=== PATIENT | male | born 1955 | race Caucasian/White ===

== ENCOUNTER → 2017-05-17 | Outpatient (CLI) | payer BC ==
[~2017-05-17] MED LIST: ASPIRIN ADULT L81 M2 PO; BACTRIM DS 8001 TAB PO; DEPO-TESTOS200 MG/M2 IM; HYDROCODONE1 TABLET PO; HYDROMORPHONE 2M2 MG PO; LORTAB 500 MG-71 TAB PO; MOBIC15 MG PO; NAPROSYN 500MG500 MG PO; PHENAZOPYRIDIN200 MG PO; PHENERGAN 25MG.25 M1 PO; TORADOL10 M1 PO; TYLENOL PM EXTR1 TAB PO; TYLENOL PM1 CAP PO; VALIUM 10MG TAB10 MG PO
--- NOTE | 2017-05-17 15:28 | RADIOLOGY REPORT PS360 ---
US [id number] HISTORY: LT FLANK PAIN, HEMATURIA, UROLITHIASIS ORDERING PHYSICIAN: Antione Batres MD PATIENT AGE: 61 years COMPARISON: None FINDINGS: RIGHT KIDNEY:Unremarkable. Normal size and echogenicity. No hydronephrosis Right kidney is 11 x 5 x 5 cm LEFT KIDNEY:Unremarkable. No hydronephrosis. Normal size and echogenicity. Left kidney is 12 x 6 x 6 cm. A 1 cm parapelvic renal cyst is noted on the left OTHER FINDINGS: No stones demonstrated IMPRESSION: 1. No hydronephrosis. No stones demonstrated. 2. Small left renal cyst. Left kidney is larger than the right which is nonspecific.
== END ==
LOC: RAD 10:17
DX: R10.9 Unspecified abdominal pain (principal); R31.9 Hematuria, unspecified; N20.9 Urinary calculus, unspecified

== ENCOUNTER → 2017-09-23 | Outpatient (CLI) | payer BC ==
[~2017-09-23] MED LIST changes: +APAP/HYDROCODON1 TA9 PO
--- NOTE | 2017-09-24 09:15 | RADIOLOGY REPORT PS360 ---
EXAM: CT LUNG LOW DOSE WO CONTRAST COMPARISON: 01/04/2013 HISTORY: 62 year old male with greater than 30 factors smoking history asymptomatic ORDERING PHYSICIAN: Serg Alonso MD PATIENT AGE: 62 years TECHNIQUE: The exam was performed on a GE Light Speed [address] scanner using 2.94 mGy CTDI. A low dose helical CT CHEST was performed on a multi-detector scanner The LDCT was performed in a facility that meets the criteria for the screening program. Data regarding this exam was submitted to [employer] which is an approved registry. The order for this exam indicates that it came as a result of a lung cancer screening counseling shard decision-making visit that included all the elements required of such a visit including smoking cessation. The radiologist interpreting this exam meets the [facility] criteria for the LDCT lung cancer screening program. The exam is reported using the Lung-RADS classification scale and reported to the ACR registry. NOTE: This study was performed for the specific purposes of lung cancer screening and is not an alternative to diagnostic chest CT. RADIATION DOSE: CTDI vol(CT dose Index-volume) = 2.94 mGy DLP (Dose Length Product) = 101.78 mGcm FINDINGS: There are centrilobular emphysematous changes with hyperinflation and bronchial thickening. No suspicious pulmonary nodules are evident. There is minimal nodularity along the major fissure on the right laterally less than 5 mm. Calcified granulomas are present in the right lung base. Mild fibrotic changes are present in the lingula IMPRESSION: 1. Lung RADS Category: 2, benign 2. Other findings: Centrilobular emphysema with obstructive chronic bronchitis RECOMMENDATIONS: 12 month LDCT screening
== END ==
LOC: RAD 13:51
DX: Z87.891 Personal history of nicotine dependence (principal); Z12.2 Encounter for screening for malignant neoplasm of respiratory organs
CPT/HCPCS: G0297